=== PATIENT | male | born 1985 | race Caucasian/White ===

== ENCOUNTER 2022-04-13 12:19 | Outpatient (CLI) | payer BC | END 2022-04-13 12:20 | disposition home or self-care (01) | LOC: CT 12:19 | PROVIDERS: ATTEND Neurological Surgery | DX: S12.9XXA Fracture of neck, unspecified, initial encounter (principal); S22.079A Unspecified fracture of T9-T10 vertebra, initial encounter for closed fracture; S22.089A Unspecified fracture of T11-T12 vertebra, initial encounter for closed fracture; S22.060A Wedge compression fracture of T7-T8 vertebra, initial encounter for closed fracture | CPT/HCPCS: 72125; 72128 ==

== ENCOUNTER 2022-05-25 09:58 | Outpatient (CLI) | payer BC | END 2022-05-25 09:59 | disposition home or self-care (01) | LOC: LABBT 09:58 | PROVIDERS: ATTEND Neurological Surgery | DX: Z20.822 Contact with and (suspected) exposure to COVID-19 (principal) | CPT/HCPCS: 87811 ==

== ENCOUNTER 2022-05-27 07:42 | Day surgery (SDC) | payer BC ==
[2022-05-25 12:43] VITALS: BMI 21.7
[2022-05-27] MEDS ORDERED: Midazolam HCl 2 mg/2 ml Vial ONE ×4 (09:21→10:10)
[2022-05-27] MEDS ORDERED: Famotidine/PF 20 mg/2ml Vial ONE ×2 (09:21→09:22)
[2022-05-27] MEDS ORDERED: Scopolamine 1.5 mg/72 hour Patch ONE (09:21)
[2022-05-27] MEDS ORDERED: Thrombin 5000 UNITS/5 ML VIAL ONE (09:39)
[2022-05-27] MEDS ORDERED: HYDROmorphone 0.5 MG/0.5 ML SYRINGE ONE ×2 (09:48→09:49)
[2022-05-27] MEDS ORDERED: fentaNYL Citrate/PF 100 MCG/2 ML SYRINGE ONE (09:48)
[2022-05-27] MEDS ORDERED: Dexamethasone 20 MG/5 ML VIAL ONE (09:49)
[2022-05-27] MEDS ORDERED: Rocuronium Bromide 10 MG/ML (10ML VIAL) ONE (09:49)
[2022-05-27] MEDS ORDERED: Ondansetron PF 4 MG/2 ML Vial ONE (09:49)
[2022-05-27] MEDS ORDERED: Glycopyrrolate 0.2 MG/ML 5 ML SYRINGE ONE (09:49)
[2022-05-27] MEDS ORDERED: PROPOFOL 200 MG/20 ML VIAL ONE (09:49)
[2022-05-27] MEDS ORDERED: Lidocaine 1% MPF 2 ML VIAL ONE (09:49)
[2022-05-27] MEDS ORDERED: Ketorolac Tromethamine 30 MG/ML VIAL ONE (09:49)
[2022-05-27] MEDS ORDERED: NEOSTIGMINE 3 MG/3 ML SYR 3 MG/3 ML SYRINGE ONE (09:49)
[2022-05-27] MEDS ORDERED: CEFAZOLIN 2 GM VIAL ONE ×2 (10:15→14:24)
[2022-05-27] MEDS ORDERED: Sodium Chloride 0.9% 100 ML ONE ×2 (10:16→14:24)
[2022-05-27] MEDS ORDERED: Promethazine HCl 25 MG/ML VIAL ONE (12:08)
[2022-05-27] MEDS ORDERED: Tamsulosin HCl 0.4 MG CAP ONE (13:34)
== END 2022-05-27 15:15 | disposition home or self-care (01) ==
LOC: SDC 07:42
PROVIDERS: ATTEND Neurological Surgery
PROC: 0RG10A0 Fusion of Cervical Vertebral Joint with Interbody Fusion Device, Anterior Approach, Anterior Column, Open Approach (ICD-10-PCS; principal; 2022-05-27)
DX: S12.500A Unspecified displaced fracture of sixth cervical vertebra, initial encounter for closed fracture (principal); S12.600A Unspecified displaced fracture of seventh cervical vertebra, initial encounter for closed fracture; M40.202 Unspecified kyphosis, cervical region; W31.89XA Contact with other specified machinery, initial encounter
CPT/HCPCS: 76000; C1713; J0690; J1100; J1170; J1885; J2250; J2405; J2550; J2704; J3490; S0028

== ENCOUNTER 2022-06-11 08:25 | Outpatient (CLI) | payer BC | END 2022-06-11 08:26 | disposition home or self-care (01) | LOC: TBSIIMAG 08:25 | PROVIDERS: ATTEND Neurological Surgery | DX: S12.500A Unspecified displaced fracture of sixth cervical vertebra, initial encounter for closed fracture (principal); S12.600A Unspecified displaced fracture of seventh cervical vertebra, initial encounter for closed fracture; M40.202 Unspecified kyphosis, cervical region; Z98.1 Arthrodesis status | CPT/HCPCS: 72040 ==